=== PATIENT | male | born 1955 | race Two or more races ===

== ENCOUNTER 2017-06-22 11:42 | Outpatient (CLI) | payer OTHER ==
[~2017-06-22 11:42] MED LIST: CATAFLAM50 MG PO; KETO10TA2 PO; OMEPRAZOLE40 MG PO; ORPH100T PO; TRAMADOL HCL-AP1 TAB PO; ZANTAC150 MG PO; ZITHROMAX500 MG PO
== END 2017-06-22 11:51 | disposition home or self-care (01) ==
LOC: RAD 11:42
DX: M54.5 Low back pain (principal)

== ENCOUNTER → 2018-12-23 | Emergency (ER) | payer OTHER ==
[~2018-12-23] VITALS: Ht 172.7 cm; Wt 86.2 kg
== END | disposition left against medical advice (07) ==
LOC: ER 16:13
DX: K29.70 Gastritis, unspecified, without bleeding (principal); R11.11 Vomiting without nausea

== ENCOUNTER 2018-12-24 11:49 | Emergency (ER) | payer OTHER ==
[~2018-12-24] VITALS: Ht 152.4 cm; Wt 86.2 kg
== END 2018-12-24 18:37 | disposition home or self-care (01) ==
LOC: ER 11:49
DX: K29.70 Gastritis, unspecified, without bleeding (principal); R10.11 Right upper quadrant pain

== ENCOUNTER 2020-05-31 08:10 | Outpatient (CLI) | payer OTHER | END 2020-05-31 08:23 | disposition home or self-care (01) | LOC: RAD 08:10 | DX: M12.562 Traumatic arthropathy, left knee (principal); S82.225A Nondisplaced transverse fracture of shaft of left tibia, initial encounter for closed fracture ==

== ENCOUNTER 2020-09-16 14:25 | Outpatient (CLI) | payer OTHER | END 2020-09-16 14:27 | disposition home or self-care (01) | LOC: RAD 14:25 | DX: R06.02 Shortness of breath (principal) ==